=== PATIENT | male | born 1980 | race Caucasian/White ===

== ENCOUNTER 2018-10-01 17:03 | Emergency (ER) | payer OTHER, SELFPAY ==
[~2018-10-01] VITALS: Ht 188 cm; Wt 128.0 kg
[2018-10-01 17:28] LABS: BASOPHILS # (AUTO) 0.05 x10^3/uL (0-0.1); BASOPHILS % (AUTO) 0 % (0-1); EOSINOPHILS # (AUTO) 0.08 x10^3/uL (0-0.4); EOSINOPHILS % (AUTO) 1 % (1-7); LYMPHOCYTES # (AUTO) 1.49 x10^3/uL (1-3.4); LYMPHOCYTES % (AUTO) 13 % (22-44); MD NO; MEAN CORPUSCULAR HEMOGLOBIN 30.1 pg (27.5-34.5); MEAN CORPUSCULAR HGB CONC 34.3 g/dL (33.2-36.2); MEAN CORPUSCULAR VOLUME 87.6 fL (81-97); MEAN PLATELET VOLUME 7.9 fL (7.4-10.4); MONOCYTES # (AUTO) 0.76 x10^3/uL (0.2-0.8); MONOCYTES % (AUTO) 7 % (2-9); NEUTROPHILS # (AUTO) 8.93 x10^3/uL (1.8-6.8); NEUTROPHILS % (AUTO) 79 % (42-75); PLATELET COUNT 325 x10^3/uL (130-400); RED BLOOD COUNT 5.26 x10^6/uL (4.38-5.82); RED CELL DISTRIBUTION WIDTH 13.4 % (9.4-14.8)
[2018-10-01 17:41] LABS: ALBUMIN 3.9 g/dL (3.4-5.0); ANION GAP 8 mmol/L (5-15); CALCIUM 8.9 mg/dL (8.5-10.1); CHLORIDE 111 mmol/L (98-107)
[2018-10-01 17:42] LABS: SALICYLATE LEVEL < 1.7 mg/dL (2.8-20.0)
[2018-10-01] MEDS ORDERED: NALOXONE 0.4 MG/ML, 1ML ONE (17:43)
[2018-10-01 17:44] LABS: ALANINE AMINOTRANSFERASE 157 U/L (12-78); ALKALINE PHOSPHATASE 89 U/L (45-117); BILIRUBIN,TOTAL 1.1 mg/dL (0.2-1.0); CREATININE 1.32 mg/dL (0.7-1.3); TOTAL PROTEIN 7.7 g/dL (6.4-8.2)
[2018-10-01 17:48] LABS: ACETAMINOPHEN < 2 mcg/mL (10-30)
[2018-10-01] MEDS ORDERED: PLEASE ENTER ALLERGIES MC SCH (18:00)
[2018-10-01] MEDS ORDERED: NALOXONE 0.4 MG/ML, 1ML IVPush ONE (18:00)
[2018-10-01] MEDS ORDERED: PLEASE ENTER HEIGHT AND WEIGHT MC SCH (18:00)
[2018-10-01 21:22] VITALS: BP 154/77
== END 2018-10-01 22:01 | disposition home or self-care (01) ==
LOC: ED 20:08
DX: F11.10 Opioid abuse, uncomplicated (principal); F15.10 Other stimulant abuse, uncomplicated
CPT/HCPCS: 36415; 80053; 80307; 80329; 85025; 93005; 96374; 99284; J2310; G0480